=== PATIENT | female | born 1995 | race African-American/Black ===

== ENCOUNTER 2018-12-13 23:43 | Emergency (ER) | payer MEDICAID ==
[~2018-12-13] VITALS: Ht 160 cm; Wt 50.0 kg
[2018-12-14] MEDS ORDERED: SODIUM CHLORIDE 0.9% 1,000 ML IV ONE ×2 (06:18)
[2018-12-14 07:24] LABS: HEMATOCRIT. 33.7 % (36.0-48.0); HEMOGLOBIN. 11.9 g/dL (12.0-16.0); MEAN CORPUSCULAR HEMOGLOBIN 31.4 pg (28.0-32.0); MEAN CORPUSCULAR VOLUME 89.3 fL (81.0-99.0); MEAN PLATELET VOLUME 8.7 fl (7.4-10.4); PLATELET 154 x1000/uL (130-400); RED BLOOD CELL COUNT 3.77 mill/uL (4.2-5.4); RED CELL DISTRIBUTION WIDTH 12.7 % (11.6-14.6)
[2018-12-14 07:26] LABS: CHLORIDE 108 mEq/L (98-107)
[2018-12-14 07:45] LABS: HCG SCREEN POSITIVE
[2018-12-14 07:58] LABS: CLARITY URINE CLOUDY (CLEAR); COLOR URINE YELLOW (YELLOW); KETONES URINE NEGATIVE (NEGATIVE); LEUKOCYTE ESTERASE URINE TRACE (NEGATIVE); NITRITE URINE NEGATIVE (NEGATIVE); OCCULT BLOOD URINE NEGATIVE (NEGATIVE); PROTEIN URINE NEGATIVE (NEGATIVE); SPECIFIC GRAVITY URINE 1.028 (1.005-1.030)
[2018-12-14 08:24] LABS: PLATELET ESTIMATE NORMAL
[2018-12-14] MEDS ORDERED: POTASSIUM CHLORIDE 20MEQ TABLET SR PO ONE (09:00)
[2018-12-14] MEDS ORDERED: ONDANSETRON HCL 4MG/2ML INJ IV ONE (09:45)
[2018-12-14 10:38] VITALS: BP 110/67
== END 2018-12-14 10:49 | disposition home or self-care (01) ==
LOC: ER 23:43
DX: O21.9 Vomiting of pregnancy, unspecified (principal); J06.9 Acute upper respiratory infection, unspecified; N39.0 Urinary tract infection, site not specified; E87.6 Hypokalemia; R19.7 Diarrhea, unspecified; Z3A.00 Weeks of gestation of pregnancy not specified
CPT/HCPCS: 36415; 71045; 80053; 81003; 81025; 83690; 84484; 84702; 84703; 85025; 85610; 87804; 93005; 96360; 96361; 99284; J7030